=== PATIENT | male | born 1965 | race Caucasian/White ===

== ENCOUNTER 2016-11-19 16:45 | Emergency (ER) | payer SELFPAY ==
[2016-11-19] MEDS ORDERED: AMOX250C4 PO (16:51)
[2016-11-19] MEDS ORDERED: HYDR25TA PO (16:51)
[2016-11-19] MEDS ORDERED: METO25 PO (16:51)
[2016-11-19] MEDS ORDERED: AMOX500T2 PO (16:54)
[2016-11-19] MEDS ORDERED: DONNATAL/LIDOCAINE/MAALOX 55 ML BOTTLE PO ONE (19:45)
== END 2016-11-19 21:31 | disposition left against medical advice (07) ==
LOC: EMS 16:47
DX: R07.89 Other chest pain (principal); R10.13 Epigastric pain; F41.9 Anxiety disorder, unspecified; I10 Essential (primary) hypertension; Z53.21 Procedure and treatment not carried out due to patient leaving prior to being seen by health care provider
CPT/HCPCS: 93005; 99281